=== PATIENT | female | born 1980 | race Caucasian/White ===

== ENCOUNTER → 2021-11-29 | Outpatient (CLI) | payer OTHER ==
[~2021-11-29] MED LIST: ALBU4 PO; Antivert25 MG PO; HYDR1TAB94 PO; LANS15EC PO; PHENA200 PO; PRED10 PO; SULTRIDS PO
== END | disposition home or self-care (01) ==
LOC: LAB SHORT 11:54
DX: J02.9 Acute pharyngitis, unspecified (principal)
CPT/HCPCS: 87081